=== PATIENT | female | born 1960 | race Caucasian/White ===

== ENCOUNTER → 2018-03-17 | Outpatient (CLI) | payer BC ==
--- NOTE | 2018-03-18 21:22 | MR ---
EXAMINATION TYPE: MR knee RT wo con DATE OF EXAM: 03/17/2018 COMPARISON: None HISTORY: Rt knee pain x 9 mos, no trauma TECHNIQUE: Multiplanar, multisequence imaging of the right knee is performed without IV contrast. FINDINGS: MEDIAL MENISCUS: Anterior and posterior horns are intact without tear. LATERAL MENISCUS: Anterior and posterior horns are intact without tear. CRUCIATE LIGAMENTS: The anterior and posterior cruciate ligaments are intact and unremarkable. COLLATERAL LIGAMENTS: The medial collateral ligament and lateral collateral ligament complex are inta ct and unremarkable. EXTENSOR MECHANISM: Visualized quadriceps and patellar tendons are intact. EFFUSION: There is a moderate joint effusion present. POPLITEAL CYST: No popliteal/pillai cyst. TRICOMPARTMENT SPACES: Mild joint space narrowing is present diffusely. CARTILAGE: There is mild narrowing of the articular cartilage. BONE MARROW SIGNAL: No focal abnormal marrow signal is appreciated. OTHER: No additional significant abnormality is appreciated. IMPRESSION: 1. Moderate joint effusion. 2. Mild diffuse osteoarthritic degenerative change.
== END | disposition home or self-care (01) ==
LOC: RADMRIMAIN 08:34
PROVIDERS: ATTEND Orthopaedic Surgery
DX: M17.11 Unilateral primary osteoarthritis, right knee (principal)

== ENCOUNTER → 2018-03-23 | Outpatient (CLI) | payer BC ==
[2018-03-23 08:04] LABS: Basophils # (A) 0.1 k/uL (0-0.2); Basophils % (A) 1 %; Eosinophils # (A) 0.4 k/uL (0-0.7); Eosinophils % (A) 6 %; HCT 44.7 % (34.0-46.0); HGB 14.4 gm/dL (11.4-16.0); Lymphocytes # (A) 2.1 k/uL (1.0-4.8); Lymphocytes % (A) 31 %; MCH 28.7 pg (25.0-35.0); MCHC 32.3 g/dL (31.0-37.0); MCV 88.8 fL (80.0-100.0); Mean Platelet Volume 5.9; Monocytes # (A) 0.4 k/uL (0-1.0); Monocytes % (A) 5 %; Neutrophils # (A) 3.7 k/uL (1.3-7.7); Neutrophils % (A) 55 %; Platelet Count 363 k/uL (150-450); RBC 5.03 m/uL (3.80-5.40); RDW 13.6 % (11.5-15.5); WBC 6.7 k/uL (3.8-10.6)
[2018-03-23 08:11] LABS: Potassium 4.9 mmol/L (3.5-5.1)
== END | disposition home or self-care (01) ==
LOC: LABPAT 07:35
PROVIDERS: ATTEND Orthopaedic Surgery
DX: Z01.818 Encounter for other preprocedural examination (principal); Z01.812 Encounter for preprocedural laboratory examination; M23.91 Unspecified internal derangement of right knee
CPT/HCPCS: 36415; 80051; 85025; 93005

== ENCOUNTER 2018-03-30 06:32 | Day surgery (SDC) | payer BC ==
[2018-03-27 15:42] VITALS: BMI 34.0
--- NOTE | 2018-03-29 11:39 | HP ---
HISTORY AND PHYSICAL CHIEF COMPLAINT: Right knee pain. 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 She notes it has worsened recently. She notes giving way along with pain with prolonged weightbearing activities. She has tried anti- inflammatories in addition to a cortisone injection with partial temporary relief. PAST MEDICAL HISTORY: Significant for hypertension. PAST SURGICAL HISTORY: Significant for section. CURRENT MEDICATIONS: Amitriptyline and ibuprofen. ALLERGIES: She has allergies to PENICILLIN and SULFA. FAMILY HISTORY: Significant for diabetes and cancer. SOCIAL HISTORY: Negative for current tobacco or alcohol use. REVIEW OF SYSTEMS: Sixteen-point review of systems otherwise reviewed and is noncontributory. PHYSICAL EXAMINATION: On examination, the patient is approximately 5 feet 1 inch, 180 pounds of endomorphic habitus. HEENT exam is nonfocal. Neck is supple. She has painless passive motion of the right hip. Straight leg raise is negative. Active motion right knee -8 to 115 degrees of flexion. She has mild effusion. She is tender about the medial joint line. Collaterals are stable, Piotr's negative, Tay's elicits medial pain. Her distal neurovascular exam appears intact in the right lower extremity. MRI report right knee 03/17/2018 shows a moderate effusion along with medial compartment degenerative changes. Increased signal along the posterior medial meniscus in addition to a chondral defect in the central patella is noted. IMPRESSION: 1. Internal derangement right knee with possible medial meniscal tear. 2. Right knee possible medial femoral condyle/patellar chondral injury. 3. Tricompartmental osteoarthrosis, right knee. RECOMMENDATIONS: I talked to the patient at length regarding her condition and treatment options. At this point, she is having significant pain and mechanical symptoms that limit her despite conservative measures. After thorough discussion, she opts to proceed with surgery. We will plan to proceed with arthroscopic evaluation with possible patellar chondroplasty and medial femoral chondrectomy. Risks and benefits were discussed at length in layman's terms. We will likely perform that as an outpatient procedure. MMODL / IJN: [id number] / MTDD
[~2018-03-30 06:32] MED LIST: DEXAMETHASONE SOD PHOSPHATE 10 MG/ML 1 ML VIAL IV ONE; LACTATED RINGERS 1,000 ML IV SCH; LIDOCAINE 1% 20 ML VIAL (10MG/ML) FOR IV START INTRADERMA PRN; MIDAZOLAM 2 MG/2 ML VIAL IV PRN; ONDANSETRON 4 MG/2 ML VIAL IVP ONE; ceFAZolin IN SWFI 2 GM/20 ML SYRINGE IVP ONE
[2018-03-30 07:19] VITALS: RESP 16
[2018-03-30] MEDS ORDERED: LIDOCAINE 1% INJ 10MG/ML (20 ML MDV) ONE (07:56)
[2018-03-30] MEDS ORDERED: PROPOFOL 10 MG/ML 20 ML VIAL IV ONE (07:56)
[2018-03-30] MEDS ORDERED: fentaNYL (PF) 50 MCG/ML 2 ML AMP ONE (07:56)
[2018-03-30] MEDS ORDERED: EPINEPHrine (PF) 1 ML in SODIUM CHLORIDE 0.9% IRRIGATIO 3,000 ML IRRIGATION ONE ×4 (08:46)
--- NOTE | 2018-03-30 09:14 | P.OP ---
Date of Procedure: 03/30/18 Preoperative Diagnosis: Right knee internal derangement Postoperative Diagnosis: Right knee posterior medial meniscal tear/grade 3 chondral injury distal medial femoral condyle/grade 3 chondral injury central patella/reactive synovitis Procedure(s) Performed: Right knee arthroscopic partial medial meniscectomy/medial femoral chondrectomy/ patellar chondroplasty/synovectomy of the medial, lateral, and patellofemoral compartments. Anesthesia: GETA Surgeon: Shan Fried Estimated Blood Loss (ml): 10 Pathology: none sent Condition: stable Disposition: PACU Indications for Procedure: The patient is a 57-year-old female who presents with progressive right knee pain and mechanical symptoms for the past several months despite conservative measures. A discussion of the risks and benefits of operative intervention versus continued conservative measures was made with the patient. She opted to proceed with surgery. Operative risks to include infection, neurovascular injury, development of blood clots, possible incomplete resolution of symptoms, possible worsening symptoms and need for subsequent procedures was discussed. Informed consent was obtained. Operative Findings: As below Description of Procedure: The patient was brought to the operating room, and after induction of general anesthesia examined the right knee. Collaterals were stable, Piotr was negative, and posterior drawer was negative. The right lower extremity was prepped and draped in a normal fashion. A superior lateral portal was made through a 3 mm skin incision superior and lateral to the patella. This was used for outflow. A lateral portal was made through a 5 mm vertical skin incision lateral to the patella tendon above the joint line. Diagnostic arthroscopy was performed. On inspection of the medial compartment, a longitudinal tear involving the posterior horn of the medial meniscus in the white-white junction was noted.. This was debrided back to stable base with straight baskets and a motorized shaver. A grade 3 chondral injury involving the distal medial femoral condyle was noted with a loose chondral fragment. This was debrided back to stable base with a motorized shaver. Grade 3/4 chondral changes were noted diffusely in the medial compartment. Significant reactive synovitis involving the anteromedial, anterolateral, and patellofemoral articulation was noted. This was debrided with motorized shaver. On inspection of the notch, the anterior cruciate ligament appeared to be intact. On inspection of the lateral compartment no significant meniscal or articular cartilage pathology was noted. On inspection of the patellofemoral articulation a grade 3 chondral defect was noted involving the central portion of the patella. Loose chondral fragments were debrided with motorized shaver. This measured 6 x 12 mm. The gutters were clear debris. The knee was then thoroughly irrigated. The portals were closed with Steri-Strips. A sterile dressing was applied in addition to a compression stocking. The patient was awoken from general anesthesia and transferred to recovery room in good condition. Blood loss was estimated at 10 mL. No complications were incurred.
[2018-03-30 09:27] VITALS: TEMP 97.1
[2018-03-30] MEDS: HYDROmorphone 0.5 MG/0.5 ML SYRINGE IVP PRN ×2 (09:36→09:41)
[2018-03-30] MEDS ORDERED: HYDROcodone/APAP 5-325MG 1 EACH TAB PO ONE (10:15)
[2018-03-30 10:29] VITALS: BP 144/84; PULSE 78
== END 2018-03-30 11:15 | disposition home or self-care (01) ==
LOC: OR 06:32
PROVIDERS: ATTEND Orthopaedic Surgery
DX: S83.241A Other tear of medial meniscus, current injury, right knee, initial encounter (principal); X58.XXXA Exposure to other specified factors, initial encounter; S83.31XA Tear of articular cartilage of right knee, current, initial encounter; M65.861 Other synovitis and tenosynovitis, right lower leg; I10 Essential (primary) hypertension; N94.819 Vulvodynia, unspecified; Z83.3 Family history of diabetes mellitus; Z79.1 Long term (current) use of non-steroidal anti-inflammatories (NSAID); Z79.899 Other long term (current) drug therapy; Z88.0 Allergy status to penicillin; Z88.2 Allergy status to sulfonamides
CPT/HCPCS: 29881; J2250; J1100; J2405; J0171; J2001; J3010; J2704; J1170; J0690

== ENCOUNTER → 2022-01-12 | Outpatient (CLI) | payer OTHER ==
--- NOTE | 2022-01-13 08:48 | MM ---
Reason for Exam: Screening (asymptomatic). Last mammogram was performed 1 year(s) and 1 month(s) ago. Patient History: Menarche at age 15. First Full-Term at age 25. Postmenopausal. Maternal grandmother had breast cancer, age 60. Risk Values: Alfreda 5 year model risk: 1.2%. NCI Lifetime model risk: 6.7%. Prior Study Comparison: 11/08/2007 Right Diagnostic Mammogram, [facility]. 10/01/2008 Bilateral Screening Mammogram, [facility]. 10/06/2008 Left Diagnostic Mammogram, [facility]. 11/13/2019 Bilateral MG screening mammo w CAD - 2, [facility]. 12/24/2020 Bilateral MG screening mammo w CAD - 2, [facility]. Tissue Density: The breast tissue is heterogeneously dense. This may lower the sensitivity of mammography. Findings: Analyzed By CAD. Asymmetric density inner right cc view 3.6cm from nipple. No suspicious calcifications. Overall Assessment: Incomplete: need additional imaging evaluation, BI-RAD 0 Management: Diagnostic Mammogram of the right breast. A clinical breast exam by your physician is recommended on an annual basis and results should be correlated with mammographic findings. Electronically signed and approved by: Marv Maldonado M.D. Radiologis
== END | disposition home or self-care (01) ==
LOC: RADMAMWWP 07:16
PROVIDERS: ATTEND Obstetrics & Gynecology
DX: Z12.31 Encounter for screening mammogram for malignant neoplasm of breast (principal); Z78.0 Asymptomatic menopausal state; Z80.3 Family history of malignant neoplasm of breast
CPT/HCPCS: 77067

== ENCOUNTER → 2022-01-18 | Outpatient (CLI) | payer OTHER ==
--- NOTE | 2022-01-18 14:54 | MM ---
Reason for Exam: Additional evaluation requested from abnormal screening. Last screening mammogram was performed less than 1 month ago. Patient History: Menarche at age 15. First Full-Term at age 25. Postmenopausal. Maternal grandmother had breast cancer, age 60. Risk Values: Alfreda 5 year model risk: 1.2%. NCI Lifetime model risk: 6.7%. Prior Study Comparison: 11/13/2019 Bilateral MG screening mammo w CAD - 2, [facility]. 12/24/2020 Bilateral MG screening mammo w CAD - 2, [facility]. 01/12/2022 Bilateral MG screening mammo w CAD, [facility]. Tissue Density: Right: The breast tissue is heterogeneously dense. This may lower the sensitivity of mammography. Findings: Analyzed By CAD. Asymmetric nodular density persists approximately 3.5 cm from the nipple at the 4:00 position right breast. Density measures approximately 9 mm. Ultrasound is advised. Overall Assessment: Incomplete: need additional imaging evaluation, BI-RAD 0 Management: Diagnostic Breast Ultrasound of the right breast. A clinical breast exam by your physician is recommended on an annual basis and results should be correlated with mammographic findings. This exam should not preclude additional follow-up of suspicious palpable abnormalities. Results were given to the patient verbally at the time of exam. Electronically signed and approved by: Marv Maldonado M.D. Radiologis
--- NOTE | 2022-01-18 15:13 | USB ---
Reason for Exam: Additional evaluation requested from abnormal screening. Patient History: Menarche at age 15. First Full-Term at age 25. Postmenopausal. Maternal grandmother had breast cancer, age 60. Risk Values: Alfreda 5 year model risk: 1.2%. NCI Lifetime model risk: 6.7%. Technique: Method: Targeted. Prior Study Comparison: 11/13/2019 Bilateral MG screening mammo w CAD - 2, [facility]. 12/24/2020 Bilateral MG screening mammo w CAD - 2, [facility]. 01/12/2022 Bilateral MG screening mammo w CAD, [facility]. Findings: The lower inner quadrant of the right breast, the axilla of the right breast and the retroareolar of the right breast were scanned. No solid or cystic masses are identified.. Overall Assessment: Probably benign, BI-RAD 3 Management: Diagnostic Mammogram of the right breast in 6 months. A clinical breast exam by your physician is recommended on an annual basis and results should be correlated with mammographic findings. This exam should not preclude additional follow-up of suspicious palpable abnormalities. Results were given to the patient verbally at the time of exam. Electronically signed and approved by: Marv Maldonado M.D. Radiologis
== END | disposition home or self-care (01) ==
LOC: RADMAMWWP 14:26
PROVIDERS: ATTEND Obstetrics & Gynecology
DX: R92.8 Other abnormal and inconclusive findings on diagnostic imaging of breast (principal); Z78.0 Asymptomatic menopausal state; Z80.3 Family history of malignant neoplasm of breast
CPT/HCPCS: 77065

== ENCOUNTER → 2022-09-07 | Outpatient (CLI) | payer OTHER ==
--- NOTE | 2022-09-07 07:58 | MM ---
Reason for Exam: Follow-up at short interval from prior study. Last screening mammogram was performed 8 month(s) ago. Patient History: Menarche at age 15. First Full-Term at age 25. Postmenopausal. Maternal grandmother had breast cancer, age 60. Risk Values: Alfreda 5 year model risk: 1.3%. NCI Lifetime model risk: 6.6%. Prior Study Comparison: 12/24/2020 Bilateral MG screening mammo w CAD - 2, [facility]. 01/12/2022 Bilateral MG screening mammo w CAD, [facility]. 01/18/2022 Right MG work up mamm w CAD RT, [facility]. Tissue Density: Right: The breast tissue is heterogeneously dense. This may lower the sensitivity of mammography. Findings: Analyzed By CAD. No new suspicious mass or calcifications within the right breast. Benign-appearing calcifications redemonstrated in the right breast. Previously seen nodularity on the CC view does not persist on today's exam. Overall Assessment: Negative, BI-RAD 1 Management: Screening Mammogram of both breasts in 6 months. A clinical breast exam by your physician is recommended on an annual basis and results should be correlated with mammographic findings. This exam should not preclude additional follow-up of suspicious palpable abnormalities. Results were given to the patient verbally at the time of exam. Note on Alfreda scores and lifetime risk: 1. A Alfreda score greater than 3% is considered moderate risk. If this is the case, consider specialist referral to assess eligibility for a risk reducing agent. If overall lifetime risk for the development of breast cancer is 20% or higher, the patient may qualify for future screening with alternating mammogram and breast MRI. Electronically signed and approved by: Walter Gupta D.O.
== END | disposition home or self-care (01) ==
LOC: RADMAMWWP 07:28
PROVIDERS: ATTEND Obstetrics & Gynecology
DX: R92.8 Other abnormal and inconclusive findings on diagnostic imaging of breast (principal); Z78.0 Asymptomatic menopausal state; Z80.3 Family history of malignant neoplasm of breast
CPT/HCPCS: 77061; 77065

== ENCOUNTER → 2023-03-16 | Outpatient (CLI) | payer OTHER ==
--- NOTE | 2023-03-17 10:30 | MM ---
Reason for Exam: Screening (asymptomatic). Last mammogram was performed 1 year(s) and 2 month(s) ago. Patient History: Menarche at age 15. First Full-Term at age 25. Postmenopausal. Maternal grandmother had breast cancer, age 60. Risk Values: Alfreda 5 year model risk: 1.3%. NCI Lifetime model risk: 6.6%. Prior Study Comparison: 11/13/2019 Bilateral MG screening mammo w CAD - 2, [facility]. 12/24/2020 Bilateral MG screening mammo w CAD - 2, [facility]. 01/12/2022 Bilateral MG screening mammo w CAD, [facility]. 01/18/2022 Right MG work up mamm w CAD RT, [facility]. 09/07/2022 Right MG 3D diag mammo w/cad RT, [facility]. Tissue Density: The breast tissue is heterogeneously dense. This may lower the sensitivity of mammography. Findings: Analyzed By CAD. There is no suspicious group of microcalcifications or new suspicious mass in either breast. Overall Assessment: Negative, BI-RAD 1 Management: Screening Mammogram of both breasts in 1 year. . Patient should continue monthly self-breast exams. A clinical breast exam by your physician is recommended on an annual basis. This exam should not preclude additional follow-up of suspicious palpable abnormalities. Note on Alfreda scores and lifetime risk: 1. A Alfreda score greater than 3% is considered moderate risk. If this is the case, consider specialist referral to assess eligibility for a risk reducing agent. 2. If overall lifetime risk for the development of breast cancer is 20% or higher, the patient may qualify for future screening with alternating mammogram and breast MRI. Electronically signed and approved by: Marv Maldonado M.D. Radiologis
== END | disposition home or self-care (01) ==
LOC: RADMAMWWP 07:13
PROVIDERS: ATTEND Obstetrics & Gynecology
DX: Z12.31 Encounter for screening mammogram for malignant neoplasm of breast (principal); Z78.0 Asymptomatic menopausal state; Z80.3 Family history of malignant neoplasm of breast
CPT/HCPCS: 77063; 77067

== ENCOUNTER → 2024-04-23 | Outpatient (CLI) | payer OTHER ==
--- NOTE | 2024-04-23 07:44 | MM ---
Reason for Exam: Screening (asymptomatic). Last mammogram was performed 1 year(s) and 1 month(s) ago. Patient History: Menarche at age 15. First Full-Term at age 25. Postmenopausal. Maternal grandmother had breast cancer, age 60. Risk Values: Alfreda 5 year model risk: 1.3%. NCI Lifetime model risk: 6.4%. Prior Study Comparison: 01/18/2022 Right MG work up mamm w CAD RT, [facility]. 09/07/2022 Right MG 3D diag mammo w/cad RT, [facility]. 03/16/2023 Bilateral MG 3D screening mammo w/cad, [facility]. Tissue Density: The breasts are heterogeneously dense, which may obscure small masses. Findings: Analyzed By CAD. Benign-appearing bilateral axillary lymph nodes are redemonstrated. There is single benign appearing calcification in the right breast again seen. There is no suspicious group of microcalcifications or new suspicious mass in either breast. Overall Assessment: Benign, BI-RAD 2 Management: Screening Mammogram of both breasts in 1 year. . Patient should continue monthly self-breast exams. A clinical breast exam by your physician is recommended on an annual basis. This exam should not preclude additional follow-up of suspicious palpable abnormalities. Note on Alfreda scores and lifetime risk: 1. A Alfreda score greater than 3% is considered moderate risk. If this is the case, consider specialist referral to assess eligibility for a risk reducing agent. 2. If overall lifetime risk for the development of breast cancer is 20% or higher, the patient may qualify for future screening with alternating mammogram and breast MRI. [facility], , 04/23/2024 7:40 AM. Electronically signed and approved by: Aneesh Pringle M.D.
== END | disposition home or self-care (01) ==
LOC: RADMAMWWP 07:03
PROVIDERS: ATTEND Obstetrics & Gynecology
DX: Z12.31 Encounter for screening mammogram for malignant neoplasm of breast (principal); R92.333 Mammographic heterogeneous density, bilateral breasts; Z78.0 Asymptomatic menopausal state; Z80.3 Family history of malignant neoplasm of breast
CPT/HCPCS: 77063; 77067